=== PATIENT | female | born 1965 | race Caucasian/White ===

== ENCOUNTER → 2020-04-29 | Outpatient (CLI) | payer BC ==
[~2020-04-29] VITALS: Ht 157.5 cm; Wt 111.1 kg
[~2020-04-29] MED LIST: ADDERALL XR 3030 MG PO; B12 ACTIVE1000 MCG PO; DARVOCET A5001 EAC1 PO; HYDROCODONE-AP1 EA11 PO; HYDROCODONE-APA1 TA1 PO; LEXAPRO20 MG PO; MOBIC15 MG PO; MONISTAT 3200 MG; NORCO 7.5-3251 EACH PO; RELAFEN750 MG PO; TIZANIDINE HCL4 M1 PO; TIZANIDINE HCL4 MG PO; TRAMADOL 50 MG50 MG PO; VICODIN OR; VIIBRYD40 MG PO; VITAMIN D 5050000 I1 PO; VITAMIN D3 COM1 EACH PO; WELLBUTRIN XL150 M1 PO; WELLBUTRIN XL150 M2 PO; WELLBUTRIN XL300 M1 PO; WELLBUTRIN XL300 MG PO; ZANAFLEX4 MG PO
--- NOTE | ~2020-04-29 | HPC ---
[facility] [place] [address] PAIN MANAGEMENT CONSULTATION Name: ELSIE MANDEL Room #: REG BONNIE OviedoJordanStacyJordan#: [id number] Admission: 04/29/20 Attend Phys: Wood Hanna DO Discharge: Date of : 63 Report #: [id number] THIS REPORT FOR: cc: Katherine Hooks MD, Jennifer MD Johnson, James E. DO ~ DATE OF SERVICE: 04/29/2020 CHIEF COMPLAINT: Low back pain, bilateral lower extremity pain with paresthesias. HISTORY OF PRESENT ILLNESS: As you know, the patient is a very pleasant 54-year-old female with longstanding history of low back pain, bilateral lower extremity pain. The patient underwent a spinal cord stimulator implantation in 2009, which was provided for chronic low back pain, deemed to be nonsurgical in origin. She apparently suffered a failure of the device in around 2013 where she was losing efficacy with pain control with the use of the spinal cord stimulator. It was noted that she had suffered a broken paddle lead and the whole entire device was removed in 2016. She has been continuing to experience increasing pain, sought evaluation with [facility] on 03/12/2020 to discuss the possibility of reimplantation of a spinal cord stimulator. The patient was seen by nurse practitioner, Brii Noriega. The suggestion of reimplantation of the device was made. The patient's information was sent to her third democrat payer, but unfortunately it was denied as experimental. The patient was advised to contact our clinic to be seen and determine whether or not a spinal cord stimulator would be appropriate. She has made today's appointment. They are hopeful that a reimplantation of the device would be beneficial as the patient is noted to be a nonsurgical candidate based on their current evaluation with reports that the surgery itself may or may not improve symptoms and thus they want to try more conservative option. The patient, as you are aware, is the sole provider to her who suffers from progressively worsening secondary multiple sclerosis with all the complications of mobility. She has been referred back to our clinic to discuss possible spinal cord stimulator implantation. It was noted in the notes that the permitted implant attempted by my partner, Dr. Baljit Hanna in 2009 was not able to be implanted secondary to scar tissue. The patient did have to undergo an implantation of a paddle lead as the permanent implant. PAST MEDICAL HISTORY: 1. History of nephrolithiasis. 2. Chronic kidney problems. 3. Headaches. 4. Depression. 5. Fatigue. 6. Osteoarthritis. 7. Fibromyalgia. [address] [address] PAIN MANAGEMENT CONSULTATION Name: ELSIE MANDEL Room #: REG [facility]#: [id number] Admission: 04/29/20 Attend Phys: Wood Hanna, DO Discharge: Date of : 63 Report #: [id number] 8. Chronic low back pain. PAST SURGICAL HISTORY: section x 3, percutaneous diskectomy in 1992, right foot ligament repair 2007, spinal cord stimulator implantation 2009, kidney stone removal secondary to sepsis 2013, cholecystectomy 2013, removal of spinal cord stimulator 2015, meniscal repair 2015, left total knee replacement in 2017, left arm biceps repair 2016, right total knee arthroplasty 2017, C3 through C5 posterior cervical fusion 2019. SOCIAL HISTORY: The patient denies tobacco, alcohol, IV or illicit drug use. She is a homemaker. She is not receiving workmen's compensation nor is trying to obtain discrete benefits. She is not in litigation in regards to her pain. She spends most of her days attending to her who suffers from secondary MS complications. ALLERGIES: CYMBALTA. CURRENT MEDICATIONS: Meloxicam 15 mg once a day, Adderall-XR 30 mg once a day, Lexapro 20 mg per day, Wellbutrin 150 mg b.i.d., vitamin D3 50 mcg per day, vitamin B12 as directed. IMAGING: No new imaging available. Pain impact score 29 of 70 indicating moderate interference of daily activities secondary to pain. PQRS: The patient has known osteoarthritic changes of the cervical spine, lumbar spine, bilateral hips and knees. No rheumatoid arthritis. She is placing current pain score anywhere from 4-7/10. She is not a fall risk, but did have a fall in last 3 months, apparently tripping over objects at home. This has been rectified by removal of the objects in the path of ambulation. She is not on blood thinners, nor she is treated for hypertension. She is on chronic opioids, has a moderate opioid addiction potential. Pain impact is 27/70, moderate interference of daily activities secondary to pain. PHYSICAL EXAMINATION: VITAL SIGNS: Blood pressure 128/92, pulse 80, respiratory rate 16 and unlabored, patient is 99% on room air. Height 5 feet 2 inches tall, weight 245 pounds, BMI calculated 44.8. GENERAL: Well-developed, well-nourished, well-hydrated, class III, severely morbidly obese 54-year-old female appearing stated age, pain is rated at 4-7/10. HEENT: Normocephalic, atraumatic. Pupils are round and symmetrical. No scleral icterus. The patient is wearing a mask in compliance with COVID-19 regulations. LUNGS: Appear clear. No wheeze, rhonchi or rales. CARDIOVASCULAR: Regular. No appreciable gallop or rub. ABDOMEN: Soft, obese, normoactive bowel sounds. EXTREMITIES: Show no clubbing, no cyanosis, no edema. [facility] [address] [place] [address] PAIN MANAGEMENT CONSULTATION Name: ELSIE MANDEL Room #: REG [facility]#: [id number] Admission: 04/29/20 Attend Phys: Wood Hanna DO Discharge: Date of : 63 Report #: [id number] MUSCULOSKELETAL: Lower extremity strength equal and symmetrical 5/5, intact to light touch from L1 through S2 dermatomes. Deep tendon reflexes are symmetrical in the bilateral lower extremities, patellar and Achilles. There are well-healed surgical scars from the previous spinal cord stimulator implantation. Ankle clonus negative. Babinski is negative. Seated straight leg raising negative. Supine straight leg raising positive on the right. Sylvester's test negative. Modified Gaenslen's positive for axial low back pain. Ankle clonus negative. Lumbar provocation testing met with a slight increase in axial back pain with forward flexion and rotation. ASSESSMENT: 1. Symptomatic lumbar radiculopathy. 2. Lumbosacral spondylosis with radiculopathy. 3. Facet arthropathy of the lumbar spine. 4. Morbid obesity. 5. Chronic intractable pain. PLAN: 1. The patient has been referred back to our clinic to discuss the possibility of looking towards a spinal cord stimulator as a treatment option. The patient has apparently applied for this treatment option through Neurosurgery and advised that the system itself is classified as an experimental device given her current back condition. We discussed with the patient that the third democrat payer restricts the use of spinal cord stimulator specifically for failed back syndrome and complex regional pain syndrome. This is based on criteria that they adopted approximately 2-3 years ago. We have discussed with the patient that given the fact that she is not a surgical candidate and that the surgery itself may potentially exacerbate her symptoms that we would be more than willing to attempt to obtain authorization to have the spinal cord stimulator reimplanted. If the patient is able to obtain this authorization given the fact that she is not a surgical candidate and that she has done very well with previous spinal cord stimulator, she would have to undergo implant with Dr. Francisco. The scar tissue in the thoracolumbar area would preclude us from providing percutaneous lead implantation. She would have to undergo paddle implantation and permanent implant directly from the paddle implant. It would not be possible for us to advance the catheters based on her history today. It appears that the implantation of the permanent device with Dr. Baljit Hanna was not possible as he could not pass the lead secondary to scar tissue at that time. She has had a spinal cord stimulator implanted for over 5 years, which would lead to even increased scar tissue further reducing our capability of implanting the device via percutaneous leads. She would have to undergo per paddle trial and permanent implantation. The patient will consider this option. She wishes to begin the authorization process if at all possible. 2. I will send the patient for psychiatric evaluation. Once she has completed the psychiatric evaluation, we will review those findings. If she is deemed an appropriate candidate from a psychiatric standpoint, we would then begin the [address] [address] PAIN MANAGEMENT CONSULTATION Name: ROSALIE MANDELMOHSEN Schreiber Room #: REG BONNIE Pisano#: [id number] Admission: 04/29/20 Attend Phys: Wood Hanna DO Discharge: Date of : 63 Report #: [id number] process of authorization. The patient will be sent for psychiatric evaluation as quickly as possible. Diagnosis for the patient is lumbar radiculopathy, nonsurgical candidate. 3. We made no changes in medication management. The patient will continue current medical therapy as prior prescribed. 4. The patient and I did discuss that we will attempt to obtain authorization to undergo spinal cord stimulator. We are hopeful that we will be able to obtain this authorization quickly though I have also requested that the patient contact her insurer directly as their criteria for implantation of a spinal cord stimulator is quite limited. I believe a letter from the patient would be of benefit. I have also requested that the patient contact the company providing this specific insurance and have their human resources people also send a letter of request for coverage of this procedure. 5. We wish to thank nurse practitioner, Paula Noriega for the referral of the patient to our clinic. We will keep you apprised of any authorization processes and our progress with that will be returning her care to your services for a trial and implantation given the scar tissue the patient has and the lack of capability of a percutaneous lead implantation in the past. Again, we wish to thank you for the opportunity to see the patient in consultation. By: [id number] Wood Hanna DO /arnaldo
[2020-04-29 10:05] VITALS: BP 128/92
--- NOTE | 2020-04-29 10:25 | NUR ---
Pain Clinic Assessment: 1. History of Osteoarthritis: ALL OVER History of Rheumatoid Arthritis: Not Applicable 2. Height: 5 ft. 2 in. 157.5 cm. Weight: 245.0 lb. oz. 111.132 kg. Patient's BMI: 44.8 3. Vital Signs: BP: 128/92 Pulse: 80 Resp: 16 Temp: 02 Sat: 99 ECG Mon: 4. Pain Intensity: 3/4-6/7 5. Fall Risk: Dizziness: N Needs help standing or walking: N Fallen in the last 3 months: Y Fall risk comments: 6. Patient on Blood Thinner: None 7. History of Hypertension: N 8. Opioid Therapy greater than 6 weeks: Y Opiate Contract Signed: 9. Risk Assessment Tool Provided: 7-moderate 10. Functional Assessment Tool: 11. Recreational Drug Use: Never Drug Type: Tobacco Use: Never Smoker Tobacco Type: Amount or Packs/day: How Many Years: Alcohol Use: No Frequency: Quant:
== END ==
LOC: PAIN 06:52
PROVIDERS: ATTEND Anesthesiology Pain Medicine
DX: M47.27 Other spondylosis with radiculopathy, lumbosacral region (principal); M79.604 Pain in right leg; M79.605 Pain in left leg; R20.2 Paresthesia of skin; E66.01 Morbid (severe) obesity due to excess calories; G89.29 Other chronic pain; Z88.8 Allergy status to other drugs, medicaments and biological substances; Z79.899 Other long term (current) drug therapy